=== PATIENT | female | born 1985 | race Caucasian/White ===

== ENCOUNTER 2018-02-11 09:47 | Emergency (ER) | payer SELFPAY ==
[~2018-02-11] VITALS: Ht 160 cm; Wt 72.0 kg
[2018-02-11 10:09] LABS: HEMATOCRIT 44.7 % (36.0-46.0); HEMOGLOBIN 15.3 G/DL (11.9-15.5); MCH 32.5 PG (29.0-34.0); MCHC 34.2 G/DL (30.0-36.0); MCV 94.9 FL (83-99); PLATELET COUNT 311 K/uL (156-360); RBC DIS.WIDTH-CV 12.2 % (11.8-14.6); RBC DIS.WIDTH-SD 42.5 % (39-53); RED BLOOD COUNT 4.71 M/uL (3.80-5.20); WHITE BLOOD COUNT 17.5 K/uL (4.1-10.2)
[2018-02-11 10:17] LABS: ALBUMIN 4.3 g/dL (3.2-4.8); CHLORIDE 103 mEq/L (99-109); SODIUM 136 mEq/L (136-147)
[2018-02-11 10:20] LABS: GLUCOSE 104 mg/dL (70-99); TOTAL PROTEIN 7.5 g/dL (6.4-8.3)
[2018-02-11 10:21] LABS: TOTAL BILIRUBIN 0.6 mg/dL (0.0-1.0)
[2018-02-11 10:23] LABS: ALKALINE PHOSPHATASE 62 IU/L (3-129); CREATININE 0.8 mg/dL (0.6-1.3)
[2018-02-11 10:24] LABS: GFR ESTIMATE (CALCULATED) > 59 mL/min/; UREA NITROGEN (BUN) 12 mg/dL (9-23)
[2018-02-11 10:25] LABS: AST (GOT) 15 IU/L (2-34)
[2018-02-11 10:26] LABS: ALT (GPT) 14 IU/L (3-49)
[2018-02-11 10:32] LABS: QUANTITATIVE HCG < 4.0 MIU/ML
[2018-02-11 11:40] LABS: LIPASE 12 U/L (1.0-51.0)
[2018-02-11 13:47] LABS: APPEARANCE CLEAR ((CLEAR)); BILIRUBIN NEGATIVE; BLOOD SMALL; COLOR YELLOW ((YELLOW)); GLUCOSE (STRIP) 50; KETONES NEGATIVE; LEUKOCYTES NEGATIVE; NITRITE NEGATIVE; PROTEIN (STRIP) NEGATIVE; UROBILINOGEN 0.2 MG/DL (0.2-1.0)
[2018-02-11 13:48] LABS: SPECIFIC GRAVITY > 1.060 (1.000-1.030)
[2018-02-11 13:55] LABS: BACTERIA NONE SEEN /HPF; EPITHELIAL CELLS 1+ /HPF; MUCUS TRACE /LPF; UCUL ADDED? NO; WHITE BLOOD CELLS 0-5 /HPF (0-5)
[2018-02-11] MEDS ORDERED: ZOFRAN4 MG PO (14:08)
[2018-02-11] MEDS ORDERED: PEPCID20 MG PO (14:08)
[2018-02-11 14:45] VITALS: BP 148/95
== END 2018-02-11 14:46 | disposition home or self-care (01) ==
LOC: EME 09:47
DX: R10.84 Generalized abdominal pain (principal); G89.29 Other chronic pain; K80.20 Calculus of gallbladder without cholecystitis without obstruction; F17.200 Nicotine dependence, unspecified, uncomplicated
CPT/HCPCS: 74177; 80053; 81003; 83690; 84702; 85027; 99281; 99284; J2405; J7030; S0028

== ENCOUNTER 2018-02-22 11:39 | Day surgery (SDC) | payer OTHER ==
[~2018-02-22] VITALS: Ht 160 cm; Wt 72.6 kg
[~2018-02-22 11:39] MED LIST: AUGMENTIN500 MG PO; PEPCID20 MG PO; ZOFRAN4 MG PO
[2018-02-22 12:26] VITALS: BP 123/86
[2018-02-22] MEDS ORDERED: NORCO 5/3251 TABLET PO (15:04)
[2018-02-22 18:23] VITALS: BP 145/89
[2018-02-22 19:15] VITALS: BP 164/73
[2018-02-22 23:27] VITALS: BP 118/69
[2018-02-23 03:40] VITALS: BP 121/64
[2018-02-23 07:48] VITALS: BP 119/71
[2018-02-23] MEDS ORDERED: AUGMENTIN500 MG PO (08:56)
[2018-02-23] MEDS ORDERED: HYDROCODON-ACE1 EAC7 PO (08:56)
== END 2018-02-23 12:04 | disposition home or self-care (01) ==
LOC: SDC 11:39 → ENRESERV 14:59 → SDC 15:09 → 2SOUTH 15:18 → 2EASTP 15:18 → ENRESERV 15:28 → 2EASTP 17:51
DX: K80.10 Calculus of gallbladder with chronic cholecystitis without obstruction (principal); K66.0 Peritoneal adhesions (postprocedural) (postinfection); F17.200 Nicotine dependence, unspecified, uncomplicated; Z80.42 Family history of malignant neoplasm of prostate; Z82.49 Family history of ischemic heart disease and other diseases of the circulatory system
CPT/HCPCS: 87070; 87075; 87205; 88304; G0378; J0131; J1100; J1170; J1885; J2250; J2405; J2710; J7120; J7643; S0020; S0074